=== PATIENT | male | born 1985 | race American Indian/Alaskan Native ===

== ENCOUNTER 2019-10-06 01:14 | Emergency (ER) | payer SELFPAY ==
[2019-10-06] MEDS ORDERED: ACETAMINOPHEN 500 MG TAB PO ONE (03:28)
[2019-10-06] MEDS ORDERED: dexAMETHasone 20 MG/5 ML VIAL IM ONE (03:28)
[2019-10-06] MEDS ORDERED: diphenhydrAMINE 25 MG CAP PO ONE (03:28)
[2019-10-06] MEDS ORDERED: METOCLOPRAMIDE 10 MG TAB PO ONE (03:28)
--- NOTE | 2019-10-06 04:29 | Emergency Department Report ---
<FAN MARIN - Last Filed: 10/06/19 04:25> ED General Adult HPI - General Chief complaint: Headache Stated complaint: HEADACHE Time Seen by Provider: 10/06/19 02:31 Source: patient Mode of arrival: Ambulatory Limitations: No Limitations - History of Present Illness Initial comments: pt is a 33 y/o aam with hx of migraine headache 05/23 and recurrent rhinitis who presents of frontal headache to usual location and intensity. There is no photophobia, no n/v no fever or chills. There is sinus pain and pressure with yellow green nasal discharge. Onset/Timin -: days(s) Location: head Severity scale (0 -10): 7 Quality: sharp Consistency: constant Improves with: none Worsens with: movement Associated Symptoms: headaches - Related Data Previous Rx's Medication Instructions Recorded Last Taken Type Acetaminophen [Acetaminophen TAB] 1,000 mg PO Q6HR PRN #30 tablet 10/06/19 Unknown Rx Amoxicillin/Potassium Clav 1 each PO BID 10 Days #20 tablet 10/06/19 Unknown Rx [Augmentin 875-125 Tablet] Metoclopramide [Reglan] 10 mg PO Q6H PRN #30 tab 10/06/19 Unknown Rx diphenhydrAMINE [Benadryl CAP] 25 mg PO Q6HR PRN #30 capsule 10/06/19 Unknown Rx ED Review of Systems Constitutional: denies: chills, fever Eyes: denies: eye pain, eye discharge, vision change ENT: ear pain, congestion, other (sinus pain ) Respiratory: denies: cough, shortness of breath, wheezing Cardiovascular: as per HPI Endocrine: no symptoms reported Gastrointestinal: denies: abdominal pain, nausea, vomiting, diarrhea Genitourinary: denies: urgency, dysuria Musculoskeletal: denies: back pain, joint swelling, arthralgia Skin: denies: rash, lesions Neurological: headache. denies: weakness, numbness, paresthesias, confusion, vertigo Psychiatric: denies: anxiety, depression Hematological/Lymphatic: denies: easy bleeding, easy bruising ED Past Medical Hx - Past Medical History Previous Medical History?: Yes Hx Headaches / Migraines: Yes - Surgical History Past Surgical History?: No - Social History Smoking Status: Current Every Day Smoker Substance Use Type: Alcohol, Marijuana - Medications Home Medications: Home Medications Medication Instructions Recorded Confirmed Last Taken Type Acetaminophen [Acetaminophen TAB] 1,000 mg PO Q6HR PRN #30 tablet 10/06/19 Unkn own Rx Amoxicillin/Potassium Clav 1 each PO BID 10 Days #20 tablet 10/06/19 Unknown Rx [Augmentin 875-125 Tablet] Metoclopramide [Reglan] 10 mg PO Q6H PRN #30 tab 10/06/19 Unknown Rx diphenhydrAMINE [Benadryl CAP] 25 mg PO Q6HR PRN #30 capsule 10/06/19 Unknown Rx ED Physical Exam - General Limitations: No Limitations General appearance: alert, in no apparent distress - Head Head exam: Present: atraumatic, normocephalic, normal inspection - Eye Eye exam: Present: normal appearance, PERRL, EOMI - ENT ENT exam: Present: mucous membranes moist, other (bilat frontal and maxillary tenderness to palpation no swelling no erythema ) - Expanded ENT Exam Expanded Ear exam: Present: normal external inspection TM/Canal exam: Erythema: Right TM, Left TM, Canal Tenderness: Right TM, Left TM Throat exam: Positive: normal inspection, other (uvula midline no exudate no lesions no stridor ). Negative: tonsillar erythema, tonsillomegaly, tonsillar exudate, R peritonsillar mass, L peritonsillar mass - Neck Neck exam: Present: normal inspection, full ROM, lymphadenopathy. Absent: tenderness, meningismus, thyromegaly - Respiratory Respiratory exam: Present: normal lung sounds bilaterally. Absent: respiratory distress, wheezes, stridor, chest wall tenderness - Cardiovascular Cardiovascular Exam: Present: regular rate, normal rhythm, normal heart sounds. Absent: systolic murmur, diastolic murmur, rubs, gallop - GI/Abdominal GI/Abdominal exam: Present: soft, normal bowel sounds - Rectal Rectal exam: Present: deferred - Extremities Exam Extremities exam: Present: normal inspection - Back Exam Back exam: Present: normal inspection, full ROM. Absent: tenderness, CVA tenderness (R), CVA tenderness (L), vertebral tenderness - Neurological Exam Neurological exam: Present: alert, oriented X3, CN II-XII intact, normal gait, reflexes normal. Absent: motor sensory deficit - Expanded Neurological Exam Expanded Patient oriented to: Present: person, place, time Speech: Present: fluid speech Upper motor neuron: David Neglect: Normal, Pronator Drift: Normal Motor strength exam: RUE: 5, LUE: 5, RLE: 5, LLE: 5 DTR: bicep (R): 2+, bicep (L): 2+, ankle (R): 2+, ankle (L): 2+ Best Eye Response ([place]): (4) open spontaneously Best Motor Response ([place]): (6) obeys commands Best Verbal Response ([place]): (5) oriented Abdulkadir Total: 15 - Psychiatric Psychiatric exam: Present: normal affect, normal mood - Skin Skin exam: Present: warm, dry, intact, normal color. Absent: rash ED Medical Decision Making - Medical Decision Making Symptoms improved, this is sinusitis , AOM, Sinus headache, plan: benadryl, reglan, tylenol, and augmentin, pt will follow up with pcp in 2-3 days. pt verbalized agreement and understanding with discharge plan. pt is currently a/o x 3 ambulatory with steady gait. Pt dc'd to home in stable condition at this time. ED Disposition Clinical Impression: Sinusitis Qualifiers: Sinusitis location: unspecified location Chronicity: unspecified Qualified Code(s): J32.9 - Chronic sinusitis, unspecified Headache Qualifiers: Headache type: unspecified Headache chronicity pattern: unspecified pattern Intractability: not intractable Qualified Code(s): R51 - Headache Disposition: DC-01 TO HOME OR SELFCARE Is pt being admited?: No Does the pt Need Aspirin: No Condition: Stable Instructions: Sinusitis (ED), Acute Headache (ED) Prescriptions: Acetaminophen [Acetaminophen TAB] 1,000 mg PO Q6HR PRN #30 tablet PRN Reason: Headache Amoxicillin/Potassium Clav [Augmentin 875-125 Tablet] 1 each PO BID 10 Days #20 tablet diphenhydrAMINE [Benadryl CAP] 25 mg PO Q6HR PRN #30 capsule PRN Reason: Headache Metoclopramide [Reglan] 10 mg PO Q6H PRN #30 tab PRN Reason: Headache Referrals: JASWANT PORTLILO MD [Staff Physician] - 3-5 Days RUIZ SHELBY MD [Referring] - 3-5 Days Forms: Work/School Release Form(ED) Time of Disposition: 04:38 <ELMER JACOBO P - Last Filed: 12/24/19 05:16> ED Review of Systems ROS: Stated complaint: HEADACHE Other details as noted in HPI ED Course Vital Signs 10/06/19 10/06/19 01:21 05:09 Temperature 97.8 F 98.4 F Pulse Rate 73 64 Respiratory 18 18 Rate Blood Pressure 121/89 Blood Pressure 108/79 [Left] O2 Sat by Pulse 100 100 Oximetry ED Medical Decision Making - Medical Decision Making Attestation: Available for consultation Critical care attestation.: If time is entered above; I have spent that time in minutes in the direct care of this critically ill patient, excluding procedure time. ED Disposition Is pt being admited?: No
[2019-10-06 05:10] VITALS: BP 108/79
== END 2019-10-06 05:10 | disposition home or self-care (01) ==
LOC: ED 01:14
DX: J01.01 Acute recurrent maxillary sinusitis (principal); J01.10 Acute frontal sinusitis, unspecified; G43.909 Migraine, unspecified, not intractable, without status migrainosus; F12.10 Cannabis abuse, uncomplicated; F17.200 Nicotine dependence, unspecified, uncomplicated; Z79.899 Other long term (current) drug therapy
CPT/HCPCS: 96372; 99282; J1100

== ENCOUNTER 2021-06-15 08:24 | Emergency (ER) | payer SELFPAY ==
[2021-06-15 08:41] VITALS: BP 129/90
== END 2021-06-15 11:00 ==
LOC: ED 08:24
DX: Z04.1 Encounter for examination and observation following transport accident (principal); Z53.21 Procedure and treatment not carried out due to patient leaving prior to being seen by health care provider